=== PATIENT | male | born 1965 | race Caucasian/White ===

== ENCOUNTER 2017-01-05 08:43 | Emergency (ER) | payer OTHER ==
[~2017-01-05] VITALS: Ht 170.2 cm; Wt 86.0 kg
[~2017-01-05 08:43] MED LIST: ATOR40TA16 PO; IBUP800T23 PO; LANTUS2P SQ; LEVO50TA4 PO; LISI2.5T3 PO; METF850T PO; NOVORP2 SQ; VENTAER INH
[2017-01-05 08:45] VITALS: BP 156/78; PULSE 88; RESP 18; TEMP 98; O2SAT 98
[2017-01-05] MEDS ORDERED: FISHCAP4 PO (09:21)
[2017-01-05] MEDS ORDERED: SODIUM CHLORIDE 0.9% FLUSH 10 ML FLUSH IV FLUSH PRN (09:30)
--- NOTE | 2017-01-05 09:36 | PD ---
HPI Chief Complaint: Abdominal Pain Time Seen by Provider: 09:13 Travel History International Travel<30 days: No Contact w/Intl Traveler<30days: No Traveled to known affect area: No History of Present Illness HPI 51-year-old man who presents to the emergency department complaining of abdominal pains been going on for the past 6 days or so. Pain is mostly periumbilical and epigastric. States pains been constant, and is worse with palpation. His appetite been normal and his symptoms are unaffected by eating. No nausea vomiting. No change in his bowel movement. No urinary symptoms. He has no history of abdominal surgeries. He has had GERD and gastritis in the past and was on Nexium in the past. He is not taking any medication recently. He takes ibuprofen 800 as needed for pain, but hasn't really been taking it for the past couple weeks. He does smoke. No alcohol. No other complaints. Patient also has an area of irritation under his right arm. He had a hyperactive splenic vein was taking some sort of specialized topical medication there. Following this he got blotchy red rash on his underarm. History Past Medical History Narrative Medical Hypertension diabetes hyperlipidemia and hypothyroidism Tetanus Vaccination: Unknown Influenza Vaccination: No Social History Alcohol Use: No Tobacco Use: Yes (1ppd) Allergies-Medications (Allergen,Severity, Reaction): Coded Allergies: No Known Allergies (Verified , 01/05/17) Uncoded Allergies: NKA (Allergy, Unknown, 05/01/03) Reported Meds & Prescriptions Reported Meds & Active Scripts Active Lotrisone Topical (Betamethasone/Clotrimazole) 1-0.05% Cream 1 Applic TOPICAL BID Omeprazole 20 Mg Tab 20 Mg PO DAILY Reported Fish Oil + D3 (Fish Oil-Cholecalciferol) 1,200-1,000 Mg-Unit Cap 1 Cap PO DAILY Ventolin Hfa 18 GM Inh (Albuterol Sulfate) 90 Mcg/Act Aer 2 Puff INH Q4H PRN Novolin R Inj (Insulin Human Regular) 1,000 Unit/10 Ml Vial 1-9 Units SQ ACHS Max dose at bedtime:( )units; sugars less than 70,(0) units; sugars 150-199,(1)unit; sugars 200-249,(3)units; sugars 250-299,(5) units; sugars 300-349,(7)units; sugars greater than 349,(9)units Metformin (Metformin HCl) 850 Mg Tab 850 Mg PO TIDPC With meals Lisinopril 2.5 Mg Tab 2.5 Mg PO DAILY Levothyroxine (Levothyroxine Sodium) 50 Mcg Tab 50 Mcg PO DAILY Lantus Inj (Insulin Glargine) 1,000 Unit/10 Ml Vial 22 Units SQ DAILY Ibuprofen 800 Mg Tab 800 Mg PO DAILY PRN Atorvastatin (Atorvastatin Calcium) 40 Mg Tab 40 Mg PO DAILY Review of Systems Except as stated in HPI: all other systems reviewed are Neg Physical Exam Narrative GENERAL: Well-appearing 48-year-old man, no acute distress. SKIN: Focused skin assessment warm/dry. On the right arm, outside of the axilla but on the mid brachium, and lower chest wall, there is an area of blotchy erythema. There is no obvious satellite lesions or yeast appearance. HEAD: Atraumatic. Normocephalic. EYES: Pupils equal and round. No scleral icterus. No injection or drainage. ENT: No nasal bleeding or discharge. Mucous membranes pink and moist. NECK: Trachea midline. No JVD. CARDIOVASCULAR: Regular rate and rhythm. No murmur appreciated. RESPIRATORY: No accessory muscle use. Clear to auscultation. Breath sounds equal bilaterally. GASTROINTESTINAL: Abdomen is flat and soft. Moderate epigastric tenderness to palpation. Minimal right upper quadrant tenderness. Negative Caldera's. MUSCULOSKELETAL: No obvious deformities. No clubbing. No cyanosis. No edema. NEUROLOGICAL: Awake and alert. No obvious cranial nerve deficits. Motor grossly within normal limits. Normal speech. PSYCHIATRIC: Appropriate mood and affect; insight and judgment normal. Data Data Last Documented VS Vital Signs Date Time Temp Pulse Resp B/P Pulse Ox O2 Delivery O2 Flow Rate FiO2 01/05/17 11:29 92 18 151/85 98 Room Air 01/05/17 08:45 98.0 Orders Complete Blood Count With Diff (01/05/17 09:24) Comprehensive Metabolic Panel (01/05/17 09:24) Lipase (01/05/17 09:24) Iv Access Insert/Monitor (01/05/17 09:24) Sodium Chloride 0.9% Flush (Ns Flush) (01/05/17 09:30) Ed Poc Ultrasound (01/05/17 09:24) Famotidine Inj (Pepcid Inj) (01/05/17 09:45) Al-Mag Hy-Si 40-40-4 Mg/Ml Liq (Mag-Al P (01/05/17 09:45) Lidocaine 2% Viscous (Xylocaine 2% Visco (01/05/17 09:45) Us Abdomen Gallbladder (01/05/17 ) Diphenhydramine Inj (Benadryl Inj) (01/05/17 10:19) Labs Laboratory Tests Test 01/05/17 09:25 White Blood Count 8.6 TH/MM3 Red Blood Count 4.73 MIL/MM3 Hemoglobin 13.6 GM/DL Hematocrit 40.8 % Mean Corpuscular Volume 86.3 FL Mean Corpuscular Hemoglobin 28.8 PG Mean Corpuscular Hemoglobin 33.4 % Concent Red Cell Distribution Width 14.3 % Platelet Count 235 TH/MM3 Mean Platelet Volume 7.6 FL Neutrophils (%) (Auto) 54.6 % Lymphocytes (%) (Auto) 35.4 % Monocytes (%) (Auto) 7.6 % Eosinophils (%) (Auto) 1.9 % Basophils (%) (Auto) 0.5 % Neutrophils # (Auto) 4.7 TH/MM3 Lymphocytes # (Auto) 3.0 TH/MM3 Monocytes # (Auto) 0.7 TH/MM3 Eosinophils # (Auto) 0.2 TH/MM3 Basophils # (Auto) 0.0 TH/MM3 CBC Comment DIFF FINAL Differential Comment Sodium Level 136 MEQ/L Potassium Level 4.2 MEQ/L Chloride Level 104 MEQ/L Carbon Dioxide Level 24.8 MEQ/L Anion Gap 7 MEQ/L Blood Urea Nitrogen 15 MG/DL Creatinine 0.97 MG/DL Estimat Glomerular Filtration 81 ML/MIN Rate Random Glucose 175 MG/DL Calcium Level 9.3 MG/DL Total Bilirubin 0.3 MG/DL Aspartate Amino Transf 14 U/L (AST/SGOT) Alanine Aminotransferase 36 U/L (ALT/SGPT) Alkaline Phosphatase 129 U/L Total Protein 7.8 GM/DL Albumin 3.9 GM/DL Lipase 401 U/L [facility] Medical Decision Making Medical Screen Exam Complete: Yes Emergency Medical Condition: Yes Interpretation(s) LABS: CBC is unremarkable. CMP is remarkable for minimally elevated alkaline phosphatase, glucose 175 Lipase 401 Formal ultrasound: Some sludge in the gallbladder. No pericholecystic fluid or gallbladder wall thickening. Fatty liver. Differential Diagnosis Gastritis, pancreatitis, cholecystitis, gastroparesis, other Narrative Course Medical decision making INITIAL calls a 51-year-old man who presents emergent department with. Umbilical epigastric abdominal pain, constant for the past several days. This is likely gastritis. He said similar trouble in the past. He uses NSAIDs but not recently. He does smoke. Looks otherwise well. Cholecystitis also possibility. Pain is not worse with eating, right upper quadrant tenderness is minimal, and right upper quadrant point of care ultrasound is reassuring. We' ll check labs, plan on treatment for gastritis if labs unremarkable. Patient also rash under his arm. Unclear if it's used her some chronic contact inflammation. We'll try Lotrisone, and outpatient follow-up. Diagnosis Primary Impression: Gastritis Additional Impression: Rash Additional Instructions: Take ranitidine as prescribed. Follow-up with your primary doctor in 2-3 days. Return to the emergency department any worsening abdominal pain, fevers, vomiting, or any other new or worsening symptoms. Med/Other Pt SpecificInfo: Prescription(s) given Scripts Betamethasone-Clotrimazole Topical (Lotrisone Topical)1-0.05% Cream1 Applic TOPICAL BID #15 GM Ref 0 Prov:Tio Henderson MD 01/05/17 Omeprazole 20 Mg Tab20 Mg PO DAILY #30 TAB Ref 0 Prov:Tio Henderson MD 01/05/17 Disposition: 01 DISCHARGE HOME Condition: Stable Tio Henderson MD January 05, 2017 09:36
[2017-01-05] MEDS ORDERED: LIDOCAINE VISCOUS 2% SOLN 15 ML UDC PO ONE (09:45)
[2017-01-05] MEDS ORDERED: FAMOTIDINE 20 MG/2 ML VIAL IV PUSH ONE (09:45)
[2017-01-05] MEDS ORDERED: ALUMINUM/MAGNESIUM/SIMETH 30 ML CUP PO ONE (09:45)
[2017-01-05 09:53] LABS: AUTOMATED NEUTROPHIL # 4.7 TH/MM3 (1.8-7.7); BASOPHIL % 0.5 % (0.0-2.0); EOSINOPHIL # 0.2 TH/MM3 (0-0.4); EOSINOPHIL % 1.9 % (0.0-4.0); HEMATOCRIT 40.8 % (39.0-51.0); HEMO FLAGS DIFF FINAL; LYMPH % 35.4 % (9.0-44.0); MEAN CELL VOLUME 86.3 FL (80.0-100.0); MEAN CORPUSCULAR HEMOGLOBIN 28.8 PG (27.0-34.0); MEAN CORPUSCULAR HGB CONC 33.4 % (32.0-36.0); MONO % 7.6 % (0.0-8.0); NEUT % 54.6 % (16.0-70.0); PLATELET COUNT 235 TH/MM3 (150-450); RED BLOOD COUNT 4.73 MIL/MM3 (4.50-5.90); RED CELL DISTRIBUTION WIDTH 14.3 % (11.6-17.2); WHITE BLOOD COUNT 8.6 TH/MM3 (4.0-11.0)
[2017-01-05] MEDS ORDERED: OMEP20TA PO (09:56)
[2017-01-05 10:04] LABS: ANION GAP 7 MEQ/L (5-15); AST (GOT) 14 U/L (15-37); BICARBONATE 24.8 MEQ/L (21.0-32.0); BLOOD UREA NITROGEN 15 MG/DL (7-18); CHLORIDE 104 MEQ/L (98-107); GLOMERULAR FILTRATION RATE 81 ML/MIN (>89); POTASSIUM 4.2 MEQ/L (3.5-5.1); SODIUM (NA) 136 MEQ/L (136-145)
[2017-01-05 10:07] LABS: ALKALINE PHOSPHATASE 129 U/L (45-117); ALT (GPT) 36 U/L (12-78); TOTAL BILIRUBIN ADULT 0.3 MG/DL (0.2-1.0)
[2017-01-05] MEDS ORDERED: diphenhydrAMINE HCL 50 MG/ML VIAL IV PUSH STA (10:19)
[2017-01-05] MEDS ORDERED: LOTR15T TOPICAL (10:30)
[2017-01-05 11:29] VITALS: BP 151/85; PULSE 92; RESP 18; O2SAT 98
--- NOTE | 2017-01-05 12:18 | RADRPT ---
EXAM DATE/TIME: 01/05/2017 11:20 [place] COMPARISON: No previous studies available for comparison. INDICATIONS : Right upper quadrant pain. MEDICAL HISTORY : Hypercholesterolemia. Hypothyroidism. Hypertension. Diabetes. Right upper quadrant pain. SURGICAL HISTORY : Titanium plates and screws in neck. ENCOUNTER: Initial ACUITY: 1 day PAIN SCORE: 3/10 LOCATION: Right upper quadrant MEASUREMENTS: LIVER: 17.9 cm length COMMON DUCT: 5 mm RIGHT KIDNEY: 10.7 x 5.3 x 5.9 cm FINDINGS: LIVER: The echotexture of the liver is increased suggesting diffuse fatty infiltration. This COMMON DUCT: No intraluminal mass or stone visualized. GALLBLADDER: There is no significant gallbladder wall thickening. There is some sludge within the neck of the gall bladder. PANCREAS: The visualized portions are within normal limits. RIGHT KIDNEY: No evidence of hydronephrosis, stone, or mass. CONCLUSION: 1. There is some sludge within the neck of the gallbladder. There is no pericholecystic fluid or gall bladder wall thickening. 2. Increased echogenicity of the liver suggesting diffuse fatty infiltration. 3. The common duct is within normal size limits. German Carbajal MD on January 05, 2017 at 12:07 Board Certified Radiologist. This report was verified electronically.
[2017-01-05 12:30] VITALS: BP 130/78
== END 2017-01-05 12:44 | disposition home or self-care (01) ==
LOC: NEPD 08:43
DX: K29.70 Gastritis, unspecified, without bleeding (principal); R21 Rash and other nonspecific skin eruption; E03.9 Hypothyroidism, unspecified; E78.5 Hyperlipidemia, unspecified; I10 Essential (primary) hypertension; E11.9 Type 2 diabetes mellitus without complications; F17.210 Nicotine dependence, cigarettes, uncomplicated
CPT/HCPCS: 76705; 80053; 83690; 85025; 96374; 96375; 99284; J1200